=== PATIENT | female | born 1985 | race Two or more races ===

== ENCOUNTER 2018-02-09 00:45 | Inpatient (IN) | payer OTHER ==
[~2018-02-09] VITALS: Ht 160 cm; Wt 62.1 kg
[2018-02-09] VITALS (32 sets, daily range): BP systolic 74–132; BP diastolic 50–87
[2018-02-09] MEDS ORDERED: LEVOTHYROXINE88 MCG PO (01:53)
[2018-02-09] MEDS ORDERED: PRENATAL TABLE1 EAC3 PO (01:54)
[2018-02-09] MEDS ORDERED: VITAMIN D31000 UNIT PO (01:55)
[2018-02-09 05:10] LABS: BASOPHIL (%) 0.2 % (0-1); EOSINOPHIL (%) 0 % (0-5); HEMATOCRIT 36.3 % (36.0-46.0); HEMOGLOBIN 11.7 G/DL (11.9-15.5); IMMATURE GRANULOCYTE (%) 0.3 % (0.0-0.7); LYMPHOCYTE (%) 12.3 % (15-42); LYMPHOCYTE COUNT 1.1 K/uL (1.0-2.8); MCH 28.4 PG (29.0-34.0); MCHC 32.2 G/DL (30.0-36.0); MCV 88.1 FL (83-99); MONOCYTE (%) 2.7 % (3-12); MONOCYTE COUNT 0.2 K/uL (0-0.8); NEUTROPHIL (%) 84.5 % (45-76); NEUTROPHIL COUNT 7.5 K/uL (1.8-6.4); PLATELET COUNT 246 K/uL (156-360); RBC DIS.WIDTH-CV 16.8 % (11.8-14.6); RBC DIS.WIDTH-SD 53.8 % (39-53); RED BLOOD COUNT 4.12 M/uL (3.80-5.20); WHITE BLOOD COUNT 8.9 K/uL (4.1-10.2)
[2018-02-09 06:04] LABS: AMPHETAMINE NEGATIVE (500 ng/mL); BARBITURATES NEGATIVE (200 ng/mL); BENZODIAZEPINES NEGATIVE (150 ng/mL); BUPRENORPHINE NEGATIVE (10 ng/mL); COCAINE NEGATIVE (150 ng/mL); METHADONE NEGATIVE (200 ng/mL); METHAMPHETAMINE NEGATIVE (500 ng/mL); OPIATES (MORPHINE) NEGATIVE (100 ng/mL); OXYCODONE NEGATIVE (100 ng/mL); PHENCYCLIDINE NEGATIVE (25 ng/mL); PROPOXYPHENE NEGATIVE (300 ng/mL); THC CANNABINOIDS NEGATIVE (50 ng/mL); TRICYCLIC ANTIDEPRESSANTS NEGATIVE (300 ng/mL)
[2018-02-10 06:49] LABS: BASOPHIL (%) 0.2 % (0-1); EOSINOPHIL (%) 0.8 % (0-5); EOSINOPHIL COUNT 0.1 K/uL (0-0.3); HEMATOCRIT 30.9 % (36.0-46.0); HEMOGLOBIN 9.8 G/DL (11.9-15.5); IMMATURE GRANULOCYTE (%) 0.4 % (0.0-0.7); LYMPHOCYTE (%) 24.2 % (15-42); MCH 29.1 PG (29.0-34.0); MCHC 31.7 G/DL (30.0-36.0); MCV 91.7 FL (83-99); MONOCYTE (%) 8.4 % (3-12); MONOCYTE COUNT 0.7 K/uL (0-0.8); NEUTROPHIL COUNT 5.5 K/uL (1.8-6.4); PLATELET COUNT 196 K/uL (156-360); RBC DIS.WIDTH-CV 17.2 % (11.8-14.6); RBC DIS.WIDTH-SD 57.3 % (39-53); RED BLOOD COUNT 3.37 M/uL (3.80-5.20); WHITE BLOOD COUNT 8.3 K/uL (4.1-10.2)
[2018-02-10 07:22] VITALS: BP 99/63
[2018-02-10 15:38] VITALS: BP 101/65
[2018-02-11 07:10] VITALS: BP 134/80
== END 2018-02-11 11:53 | disposition home or self-care (01) | DRG 775 ==
LOC: LDRP-OP 00:45 → 2WEST 00:46
PROVIDERS: Advanced Practice Midwife
DX: O34.219 Maternal care for unspecified type scar from previous cesarean delivery (principal); Z37.0 Single live birth; Z3A.39 39 weeks gestation of pregnancy; O99.284 Endocrine, nutritional and metabolic diseases complicating childbirth; O99.02 Anemia complicating childbirth; E07.9 Disorder of thyroid, unspecified; D62 Acute posthemorrhagic anemia; Z3A.00 Weeks of gestation of pregnancy not specified; O70.0 First degree perineal laceration during delivery
CPT/HCPCS: 85025; 86850; 86900; 86901; C1755; J0595; J3010; J7120; S0028